=== PATIENT | male | born 1955 | race Two or more races ===

== ENCOUNTER 2022-07-07 14:05 | Inpatient (IN) | payer MEDICARE, OTHER ==
[2022-07-07 16:53] VITALS: BMI 26.2
[2022-07-07] MEDS ORDERED: Calcium Carbonate 500 MG ChewTAB PO PRN (17:40)
[2022-07-07] MEDS ORDERED: HYDROcodone/Acetaminophen 5/325 mg Tablet PO PRN (17:40)
[2022-07-07] MEDS ORDERED: Ondansetron PF 4 MG/2 ML Vial IVP PRN (17:40)
[2022-07-07] MEDS ORDERED: Acetaminophen 325 MG TAB PO PRN (17:40)
[2022-07-07] MEDS ORDERED: Guaifenesin DM 100-10/5 ML UDCUP PO PRN (17:40)
[2022-07-07] MEDS ORDERED: Senokot S 8.6-50 MG TAB PO PRN (17:40)
[2022-07-07] MEDS ORDERED: Enoxaparin Sodium 80 MG/0.8 ML SYRINGE SC SCH (18:15)
[2022-07-07] MEDS ORDERED: Diltiazem HCl 125 MG in Premix Bag 1 BAG IVPB SCH (18:15)
[2022-07-07] MEDS ORDERED: Metoprolol Tartrate 25 MG TAB PO SCH (21:00)
[2022-07-08 01:47] LABS: #Basophils 0.1 thou/uL (0.0-0.2); #Eosinphils 0.2 thou/uL (0.0-0.7); #Lymphocytes 1.6 thou/uL (1.20-3.40); #Monocytes 0.8 thou/uL (0.11-0.59); #Neutrophils 6.2 thou/uL (1.40-6.50); %Basophils 0.8 % (0.0-1.0); %Eosinophils 1.9 % (0.0-10.0); %Monocytes 9.2 % (0.0-10.0); %Neutrophils 70.1 % (42.0-75.0); Hemoglobin 17.1 g/dL (14.0-18.0); Mean Corpuscular HGB CONC 36.2 g/dL (32.0-36.0); Mean Corpuscular Hemoglobin 33.1 pg (27.0-31.0); Mean Corpuscular Volume 91.5 fL (78.0-98.0); Mean Platelet Volume 7.1 fL (7.4-10.4); Platelet Count 262 thou/uL (130-400); RBC Distribution Width 11.9 % (11.5-14.5); Red Blood Cell (RBC) Count 5.16 mill/uL (4.70-6.10); White Blood Cell (WBC) Count 8.8 thou/uL (4.8-10.8)
[2022-07-08 02:10] LABS: Magnesium 2.1 mg/dL (1.6-2.6)
[2022-07-08 02:17] LABS: ALT (SGPT) 22 U/L (8-55); AST (SGOT) 18 U/L (5-34); Albumin 3.9 g/dL (3.4-4.8); Alkaline Phosphatase 62 U/L (40-110); Anion Gap 15 mmol/L (10-20); BUN (Urea Nitrogen) 18 mg/dL (8.4-25.7); Bilirubin, Total 0.9 mg/dL (0.2-1.2); Calc. Creatinine Clearance 81 mL/min (70-130); Calcium 9.6 mg/dL (7.8-10.44); Carbon Dioxide 23 mmol/L (23-31); Cardiac Risk 7.7 (Less than 4.5); Chloride 105 mmol/L (98-107); Cholesterol 269 mg/dl (< 200 Desired); Estimated GFR 89; Globulin 3.1 g/dL (2.4-3.5); Glucose 106 mg/dL (80-115); HDL Cholesterol 35 mg/dL (>60 Neg Risk); LDL Cholesterol, Calculated 173 mg/dL; Potassium 4.3 mmol/L (3.5-5.1); Sodium 139 mmol/L (136-145); Triglycerides 304 mg/dL (Less than 150)
[2022-07-08] MEDS: Metoprolol Tartrate 50 MG TAB PO SCH ×2 (10:00→20:20)
[2022-07-08] MEDS ORDERED: Amiodarone 450 MG in Dextrose 5% in Water 250 ML IVPB SCH (16:30)
[2022-07-08] MEDS ORDERED: Amiodarone 150 MG, Admixture Fee 1 EACH in Dextrose 5% in Water 100 ML IVPB SCH (17:00)
[2022-07-08] MEDS: Sodium Chloride 0.9% 1,000 ML IV SCH (17:55)
[2022-07-08] MEDS: Amiodarone 200 MG TAB PO SCH (20:19)
[2022-07-08] MEDS: Apixaban 5 MG TAB PO SCH (20:20)
[2022-07-09] MEDS: Apixaban 5 MG TAB PO SCH (11:39)
[2022-07-09] MEDS: Amiodarone 200 MG TAB PO SCH (11:39)
[2022-07-09] MEDS: Metoprolol Tartrate 50 MG TAB PO SCH (11:39)
[2022-07-09] MEDS: Sodium Chloride 0.9% 1,000 ML IV SCH (11:39)
[2022-07-09 12:58] VITALS: BP 125/70; TEMP 97.9
== END 2022-07-09 15:28 | disposition home or self-care (01) | DRG 310 ==
LOC: 2SW 14:05 → OBSVTOIN 17:40
PROVIDERS: ADMIT Internal Medicine; ATTEND Internal Medicine
DX: I48.0 Paroxysmal atrial fibrillation (principal); I48.92 Unspecified atrial flutter; I10 Essential (primary) hypertension; E87.5 Hyperkalemia; N40.1 Benign prostatic hyperplasia with lower urinary tract symptoms; R33.8 Other retention of urine; Z20.822 Contact with and (suspected) exposure to COVID-19; E78.5 Hyperlipidemia, unspecified; I25.2 Old myocardial infarction; Z79.899 Other long term (current) drug therapy; Z95.1 Presence of aortocoronary bypass graft; Z90.49 Acquired absence of other specified parts of digestive tract; Z98.890 Other specified postprocedural states; Z87.891 Personal history of nicotine dependence
CPT/HCPCS: 36415; 80053; 80061; 83735; 84443; 84484; 85025; 93005; 93010; 93306; J0282; J1650; J7050; J7070; U0003; U0005

== ENCOUNTER 2022-12-02 11:05 | Inpatient (IN) | payer MEDICARE ==
[2022-12-02 12:05] LABS: #Basophils 0.1 thou/uL (0.0-0.2); #Eosinphils 0.2 thou/uL (0.0-0.7); #Lymphocytes 1.8 thou/uL (1.20-3.40); #Monocytes 0.9 thou/uL (0.11-0.59); %Basophils 0.6 % (0.0-1.0); %Lymphocytes 20.1 % (21.0-51.0); %Monocytes 9.8 % (0.0-10.0); %Neutrophils 67.5 % (42.0-75.0); Hemoglobin 16.9 g/dL (14.0-18.0); Mean Corpuscular HGB CONC 33.8 g/dL (32.0-36.0); Mean Corpuscular Hemoglobin 30.5 pg (27.0-31.0); Mean Corpuscular Volume 90.2 fl (78.0-98.0); Mean Platelet Volume 7.7 fL (7.4-10.4); Platelet Count 298 10x3/uL (130-400); RBC Distribution Width 11.9 % (11.5-14.5); Red Blood Cell (RBC) Count 5.53 mill/uL (4.70-6.10); White Blood Cell (WBC) Count 8.9 10x3/uL (4.8-10.8)
[2022-12-02 12:13] LABS: ALT (SGPT) 12 U/L (8-55); AST (SGOT) 19 U/L (5-34); Albumin 4.1 g/dL (3.4-4.8); Alkaline Phosphatase 69 U/L (40-110); Anion Gap 13 mmol/L (10-20); BUN (Urea Nitrogen) 19 mg/dL (8.4-25.7); Bilirubin, Total 0.6 mg/dL (0.2-1.2); Calc. Creatinine Clearance 0 mL/min (70-130); Calcium 9.6 mg/dL (7.8-10.44); Carbon Dioxide 21 mmol/L (23-31); Chloride 107 mmol/L (98-107); Estimated GFR 95; Globulin 3.2 g/dL (2.4-3.5); Glucose 96 mg/dL (80-115); Potassium 4.4 mmol/L (3.5-5.1); Protein, Total 7.3 g/dL (5.8-8.1); Sodium 137 mmol/L (136-145)
[2022-12-02 12:48] LABS: CKMB 4.6 ng/mL (0-6.6)
[2022-12-02 16:26] LABS: Critical Call Chem Troponin I RESULT DECREASING; Troponin I 0.649 ng/mL (< 0.028)
[2022-12-02] MEDS ORDERED: Ondansetron PF 4 MG/2 ML Vial IVP PRN (17:59)
[2022-12-02] MEDS ORDERED: Ondansetron ODT 4 MG TAB PO PRN (17:59)
[2022-12-02 18:42] LABS: Critical Call Chem Troponin I RESULT DECREASING; Troponin I 0.516 ng/mL (< 0.028)
[2022-12-02] MEDS ORDERED: HYDROcodone/Acetaminophen 5/325 mg Tablet PO PRN (19:03)
[2022-12-02] MEDS ORDERED: Senokot S 8.6-50 MG TAB PO PRN (19:03)
[2022-12-02] MEDS ORDERED: Acetaminophen 325 MG TAB PO PRN (19:03)
[2022-12-02] MEDS ORDERED: Nitroglycerin 0.4 MG TAB (25 Tab Bottle) SL PRN (19:05)
[2022-12-02] MEDS ORDERED: Morphine 2 MG/ML VIAL SLOW IVP PRN (19:05)
[2022-12-02] MEDS ORDERED: Labetalol HCl 100 MG/20 ML VIAL SLOW IVP PRN (19:06)
[2022-12-02] MEDS ORDERED: Tamsulosin HCl 0.4 MG CAP PO SCH (19:15)
[2022-12-02 20:03] VITALS: BMI 26.6
[2022-12-02] MEDS: Isosorbide Dinitrate 5 MG TAB PO SCH (22:59)
[2022-12-03] MEDS: Isosorbide Dinitrate 5 MG TAB PO SCH ×2 (06:02→19:53)
[2022-12-03] MEDS ORDERED: Lidocaine 1% (PF) 30 ML VIAL ONE (07:11)
[2022-12-03] MEDS ORDERED: Aspirin 81 mg Enteric Coated Tablet PO SCH (09:00)
[2022-12-03] MEDS ORDERED: Heparin 10,000 UNITS/ 10 ML VIAL ONE ×2 (09:02→10:04)
[2022-12-03] MEDS ORDERED: Nitroglycerin 100MG/250ML BOT 0 ML ONE (09:02)
[2022-12-03] MEDS ORDERED: Midazolam HCl 2 mg/2 ml Vial ONE (09:02)
[2022-12-03] MEDS ORDERED: FENTANYL 50 MCG/ML 1 ML VIAL ONE (09:02)
[2022-12-03] MEDS ORDERED: Iopamidol 370 76% 100 ML VIAL ONE (09:42)
[2022-12-03] MEDS ORDERED: Adenosine 6 MG/2 ML VIAL ONE (09:54)
[2022-12-03] MEDS ORDERED: Clopidogrel Bisulfate 300 MG TAB ONE (09:56)
[2022-12-03] MEDS ORDERED: Sodium Chloride 0.9% 500 ML IV SCH (10:30)
[2022-12-03] MEDS: Tamsulosin HCl 0.4 MG CAP PO SCH (11:29)
[2022-12-03] MEDS ORDERED: Tamsulosin HCl 0.4 MG CAP ONE (11:30)
[2022-12-04 04:53] LABS: #Eosinphils 0.1 thou/uL (0.0-0.7); #Lymphocytes 1.1 thou/uL (1.20-3.40); #Monocytes 0.7 thou/uL (0.11-0.59); #Neutrophils 5.5 thou/uL (1.40-6.50); %Basophils 0.3 % (0.0-1.0); %Monocytes 9.8 % (0.0-10.0); %Neutrophils 72.9 % (42.0-75.0); Hemoglobin 15.5 g/dL (14.0-18.0); Mean Corpuscular HGB CONC 34.2 g/dL (32.0-36.0); Mean Corpuscular Hemoglobin 30.7 pg (27.0-31.0); Mean Corpuscular Volume 89.7 fl (78.0-98.0); Mean Platelet Volume 7.6 fL (7.4-10.4); Platelet Count 239 10x3/uL (130-400); RBC Distribution Width 11.8 % (11.5-14.5); Red Blood Cell (RBC) Count 5.06 mill/uL (4.70-6.10); White Blood Cell (WBC) Count 7.5 10x3/uL (4.8-10.8)
[2022-12-04 05:17] LABS: ALT (SGPT) 13 U/L (8-55); AST (SGOT) 21 U/L (5-34); Albumin 3.6 g/dL (3.4-4.8); Alkaline Phosphatase 64 U/L (40-110); Anion Gap 11 mmol/L (10-20); BUN (Urea Nitrogen) 16 mg/dL (8.4-25.7); Bilirubin, Total 0.9 mg/dL (0.2-1.2); Calc. Creatinine Clearance 96 mL/min (70-130); Calcium 9.5 mg/dL (7.8-10.44); Carbon Dioxide 21 mmol/L (23-31); Chloride 107 mmol/L (98-107); Estimated GFR 96; Globulin 2.6 g/dL (2.4-3.5); Glucose 98 mg/dL (80-115); Potassium 3.9 mmol/L (3.5-5.1); Protein, Total 6.2 g/dL (5.8-8.1); Sodium 135 mmol/L (136-145)
[2022-12-04] MEDS: Isosorbide Dinitrate 5 MG TAB PO SCH (08:59)
[2022-12-04] MEDS ORDERED: Clopidogrel Bisulfate 75 MG TAB PO SCH (09:00)
[2022-12-04] MEDS ORDERED: Aspirin Chewable 81 MG TAB PO SCH (09:00)
[2022-12-04 12:06] VITALS: BP 143/74; TEMP 97.6
[2022-12-04] MEDS: Tamsulosin HCl 0.4 MG CAP PO SCH (14:27)
== END 2022-12-04 16:00 | disposition home or self-care (01) | DRG 246 ==
LOC: ERS 11:05 → ERHOLD 15:15 → 2SW 17:40
PROVIDERS: ADMIT Internal Medicine; ATTEND Internal Medicine
PROC: 027035Z Dilation of Coronary Artery, One Artery with Two Drug-eluting Intraluminal Devices, Percutaneous Approach (ICD-10-PCS; principal; 2022-12-03)
PROC: 4A023N7 Measurement of Cardiac Sampling and Pressure, Left Heart, Percutaneous Approach (ICD-10-PCS; 2022-12-03)
PROC: B2151ZZ Fluoroscopy of Left Heart using Low Osmolar Contrast (ICD-10-PCS; 2022-12-03)
PROC: B2111ZZ Fluoroscopy of Multiple Coronary Arteries using Low Osmolar Contrast (ICD-10-PCS; 2022-12-03)
DX: I48.0 Paroxysmal atrial fibrillation (principal); I21.4 Non-ST elevation (NSTEMI) myocardial infarction; I25.10 Atherosclerotic heart disease of native coronary artery without angina pectoris; N40.0 Benign prostatic hyperplasia without lower urinary tract symptoms; E78.5 Hyperlipidemia, unspecified; Z79.82 Long term (current) use of aspirin; Z79.899 Other long term (current) drug therapy; Z95.1 Presence of aortocoronary bypass graft; I25.2 Old myocardial infarction
CPT/HCPCS: 36415; 71045; 80053; 82553; 83880; 84484; 85025; 85347; 92928; 93005; 93010; 93306; 93455; 93798; 96372; 99152; 99153; C1725; C1769; C1876; C1887; C9600; J0153; J1644; J1650; J2001; J2250; J3010; J7030; Q9967; U0003; U0005